=== PATIENT | male | born 1995 | race Caucasian/White ===

== ENCOUNTER → 2018-06-24 14:15 | Outpatient (CLI) | payer BC, SELFPAY ==
--- NOTE | 2018-06-24 14:24 | XR_ITS ---
XR hand LT min 3V HISTORY: Pain following injury ITS.REASON: LACERATION, 2ND FINGER ORDERING PHYSICIAN: Carmen Castillo PATIENT AGE: 23 years COMPARISON: None FINDINGS: No fracture or dislocation. No lytic or blastic change. There is normal mineralization.. The joint spaces are well-preserved. No significant degenerative/arthritic changes. No erosive changes evident.. IMPRESSION: Negative, no acute finding
== END ==
PROVIDERS: PCP Nurse Practitioner Family; Visit Provider Nurse Practitioner Family
DX: S61.213A Laceration without foreign body of left middle finger without damage to nail, initial encounter (principal)
CPT/HCPCS: 73130

== ENCOUNTER → 2019-05-07 15:25 | Outpatient (CLI) | payer BC, SELFPAY ==
[2019-05-07 16:19] LABS: Basophils % 0.7 % (0.1-2.0); Eosinophils # 0.1 K/mm3 (0.0-0.4); Eosinophils % 1.4 % (0.1-12.0); Hematocrit 42.6 % (42.0-52.0); Hemoglobin 13.7 g/dL (14.1-18.0); Lymphocytes # 1.9 K/mm3 (0.7-4.5); Lymphocytes % 33.1 % (10-50); Mean Corpuscular HGB Conc 32.1 g/dL (31.8-35.4); Mean Corpuscular Hemoglobin 28.4 pg (27.0-31.2); Mean Corpuscular Volume 88.4 fl (80-94); Mean Platelet Volume 7.4 fl (7.4-10.4); Monocytes # 0.6 K/mm3 (0.1-1.0); Monocytes % 9.7 % (1.7-9.3); Neutrophils # 3.1 K/mm3 (1.8-7.8); Neutrophils % 55.1 % (37.0-80.0); Platelet Count 219 K/mm3 (142-424); Red Blood Count 4.82 M/mm3 (4.60-6.20); Red Cell Distribution Width 13.9 % (11.5-17.5); White Blood Count 5.7 K/mm3 (4.8-10.8)
[2019-05-07 19:15] LABS: Alanine Aminotransferase 47 U/L (12-78); Albumin Level 4.3 gm/dL (3.4-5.0); Albumin/Globulin Ratio 1.7 (1.1-1.8); Alkaline Phosphatase 69 U/L (46-116); Anion Gap 9.1 mEq/L (5-15); Aspartate Amino Transferase 30 U/L (15-37); Bilirubin,Total 2.3 mg/dL (0.2-1.0); Blood Urea Nitrogen 11 mg/dL (7-18); Calcium 8.9 mg/dL (8.5-10.1); Carbon Dioxide 31 mmol/L (21.0-32.0); Chloride 104 mmol/L (98-107); Chol/HDL Ratio 2.7 (1-3.5); Cholesterol 154 mg/dL (140-200); Creatinine,Serum 0.72 mg/dL (0.70-1.30); Estimated Glomerular Filt Rate 133 ml/min (>60); GFR (African American) 161 ML/MIN (>60); Globulin 2.6 gm/dl (1.3-3.2); Glucose 91 mg/dL (74-106); HDL Cholesterol 57 mg/dL (27-67); LDL Cholesterol 88 mg/dL (0-130); Potassium 4.1 mmoL/L (3.5-5.1); Sodium 140 mmol/L (136-145); T4 (Thyroxine) 9.2 ug/dl (4.7-13.3); Thyroid Stimulating Hormone 3.24 uIU/ml (0.358-3.740); Total Protein,Serum 6.9 gm/dL (6.4-8.2); Triglycerides 44 mg/dL (30-200); VLDL Cholesterol 9 mg/dL (0-40)
[2019-05-09 17:04] LABS: H. pylori Breath Test Negative (Negative); Vitamin D 25 Hydroxy 34.8 ng/mL (30.0-100.0)
== END ==
PROVIDERS: Visit Provider Nurse Practitioner Family
DX: G47.9 Sleep disorder, unspecified (principal); E78.00 Pure hypercholesterolemia, unspecified; R10.9 Unspecified abdominal pain; R74.8 Abnormal levels of other serum enzymes
CPT/HCPCS: 36415; 80053; 80061; 82652; 83013; 84436; 84443; 85025

== ENCOUNTER → 2019-05-27 08:34 | Outpatient (CLI) | payer BC, SELFPAY ==
--- NOTE | 2019-05-27 08:38 | US_ITS ---
PROCEDURE: US LIVER CLINICAL INDICATION: elevated liver enzymes COMPARISON: No exams were available for comparison FINDINGS: Pancreas: Unremarkable/Not well seen Liver: Unremarkable. There is appropriate direction of blood flow within a non dilated portal vein. Right kidney: Unremarkable appearing. No hydronephrosis. Gallbladder: Post cholecystectomy. Common bile duct is normal at 2 mm. IMPRESSION: Status post cholecystectomy. Unremarkable hepatic ultrasound Dictated by: Ambrose Choudhary MD 05/27/2019 19:43 Electronically signed by Ambrose Choudhary MD in [place] 05/27/2019 19:43
== END ==
PROVIDERS: PCP Nurse Practitioner Family; Visit Provider Nurse Practitioner Family
DX: R74.8 Abnormal levels of other serum enzymes (principal)
CPT/HCPCS: 76705

== ENCOUNTER 2020-05-21 15:01 | Emergency (ER) | payer BC, SELFPAY ==
[2020-05-21 15:45] VITALS: BP 107/71; PULSE 73; RESP 17; TEMP 36.6; O2SAT 99; BMI 20.3
--- NOTE | 2020-05-21 15:54 | HMH.EDUTC ---
[facility] – [place], [place] Disposition Clinical Impression: Exposure to COVID-19 virus Disposition: Home, Self-Care Condition on Discharge: Good Instructions: Preventing the Spread of Coronavirus Discharge Instructions Additional Instructions: You have been tested for COVID19. Please isolate yourself as if you are positive until test results received. Referrals: Carmen Castillo APRN [Primary Care Provider] - Time of Disposition: 16:08 Medical Decision Making - Nathaniel Inquiry Pt receiving controlled substance: No Vital Signs: 05/21/20 15:45 Temperature 97.8 F Temperature Source Oral Pulse Rate [Right Brachial] 73 Respiratory Rate 17 Blood Pressure [Right Arm] 107/71 L Blood Pressure Mean [Right Arm] 83 Blood Pressure Source [Right Arm] Automatic Cuff Blood Pressure Position [Right Arm] Sitting 02 Sat by Pulse Oximetry 99 Oxygen Delivery Method Room Air - Lab Data Lab results reviewed: Yes: I reviewed the patient's lab results. Orders (Tests/Meds): ORDERS Category Date Time Status Covid-19 Nasal PCR ([facility]) Routine Lab 05/21/20 15:30 Received [facility] – [place], [place] HPI - General Stated complaint: Nausea, fever, chills Time Seen by Provider: 05/21/20 15:55 - History of Present Illness Provider Complaint: Nausea, fever, body aches, chills x 4 days. No vomiting or diarrhea. No loss of taste or smell. Throat is sore and hurts to swallow. Mild congestion. No known exposure to COVID19. Onset (ago): day(s) (4) Location: face Relieving factors: none Exacerbating factors: none Associated symptoms: fever/chills, headaches, nausea/vomiting Treatments prior to arrival: none - Related Data Previous Rx's Medication Instructions Recorded prednisone 20 mg tablet 20 mg PO BID #10 tab 02/11/20 naproxen 500 mg tablet 500 mg PO BID 7 Days #14 tab 02/20/20 Allergies Allergy/AdvReac Type Severity Reaction Status Date / Time NO KNOWN ALLERGIES Allergy Uncoded 02/11/20 13:41 [facility] History - Hepatitis A Screen Attestation statement:: This patient has been screened for Hepatitis A risk factors. I have reviewed the patient's past medical history: Yes Medical History: Reports:: Anxiety, Gall Bladder Disease Laterality Cases: Right: Arthroscopy Shoulder Other Surgeries: Yes: Cholecystectomy, Other Amputation: No Fractures: No Comment: [place] teeth removed, finger - Social History Smoking Status: Never smoker Alcohol Intake: never Alcohol Intake Frequency:: a few times a month Substance Use Type: denies use Occupational Status: employed - Psychiatric History Pschychiatric History:: Reports:: Anxiety Family Hx:: Heart Attack, Stroke, Hypertension, Cancer ROS Obtained: Yes All systems reviewed & no additional complaints - Constitutional Constitutional: Reports body ache, Reports chills, Reports fever(s) - ENT Ears, Nose, Mouth, and Throat: Reports sore throat, Reports throat swelling - Gastrointestinal Gastrointestingal: Reports: nausea Physical Exam - General General appearance: alert, in no apparent distress - Head Head exam: atraumatic, normocephalic, normal inspection - Eye Eye exam: Present: normal appearance, PERRL, EOMI - ENT ENT exam: Present: normal exam, normal oropharynx, mucous membranes moist, TM's normal bilaterally, normal external ear exam - Expanded ENT Exam Throat exam: Present: tonsillar erythema, tonsillomegaly, tonsillar exudate - Neck Neck exam: Present: normal inspection, full ROM, trachea midline. Absent: meningismus, lymphadenopathy - Chest Chest inspection: Present: normal inspection, symmetric chest wall rise. Absent: tenderness - Respiratory Respiratory exam: Present: normal lung sounds bilaterally. Absent: respiratory distress - Cardiovascular Cardiovascular exam: Present: regular rate, normal rhythm. Absent: JVD - Abdominal Exam Abdominal exam: Present: soft, normal bowel sounds. Absent: distention, tenderness, guarding - Extremities Exam Extremities ex
[2020-05-21 16:18] VITALS: BP 107/71; PULSE 73; RESP 17; TEMP 36.6; O2SAT 99
[2020-05-21 18:10] LABS: UTC Strep Screen (Rapid) Negative (Negative)
== END 2020-05-21 16:20 | disposition home or self-care (01) ==
PROVIDERS: Emergency Provider Physician Assistant; PCP Nurse Practitioner Family
DX: Z20.828 Contact with and (suspected) exposure to other viral communicable diseases (principal); R50.9 Fever, unspecified; R11.0 Nausea
CPT/HCPCS: 87880; 99202; U0003

== ENCOUNTER → 2021-08-29 11:22 | Outpatient (CLI) | payer OTHER, SELFPAY ==
[2021-08-30 06:54] LABS: Covid-19 Nasal PCR Sendout Lex NOT DETECTED
== END ==
PROVIDERS: PCP Nurse Practitioner Family; Visit Provider Nurse Practitioner
DX: Z20.822 Contact with and (suspected) exposure to COVID-19 (principal)
CPT/HCPCS: C9803; U0004; U0005

== ENCOUNTER → 2022-02-24 15:57 | Outpatient (CLI) | payer OTHER, SELFPAY ==
[2022-02-24 15:02] LABS: Adenovirus,PCR Not Detected (NotDetected); Bordetella Pertussis Not Detected (NotDetected); Chlamydophila Pneumoniae, PCR Not Detected (NotDetected); Coronavirus 229E Not Detected (NotDetected); Coronavirus NL63 Not Detected (NotDetected); Coronavirus OC43 Not Detected (NotDetected); Coronovirus HKU1,PCR Not Detected (NotDetected); Human Metapneumovirus Not Detected (NotDetected); Influenza A, PCR Not Detected (NotDetected); Influenza AH1, 2009 Not Detected (NotDetected); Influenza AH1, PCR Not Detected (NotDetected); Influenza AH3,PCR Not Detected (NotDetected); Influenza B, PCR Not Detected (NotDetected); Mycoplasma Pneumoniae, PCR Not Detected (NotDetected); Parainfluenza 1, PCR Not Detected (NotDetected); Parainfluenza 2, PCR Not Detected (NotDetected); Parainfluenza 3, PCR Not Detected (NotDetected); Parainfluenza 4, PCR Not Detected (NotDetected); Respiratory Syncytial Virus Not Detected (NotDetected); Rhinovirus/Enterovirus Not Detected (NotDetected)
[2022-02-24 16:43] LABS: Coronavirus 19, PCR Detected (NotDetected)
== END ==
PROVIDERS: PCP Nurse Practitioner Family; Visit Provider Nurse Practitioner Family
DX: U07.1 COVID-19 (principal); J02.9 Acute pharyngitis, unspecified; R50.9 Fever, unspecified; R05.9 Cough, unspecified
CPT/HCPCS: 87581; 87632; 87798; C9803; U0003; U0005

== ENCOUNTER → 2022-07-06 11:44 | Outpatient (CLI) | payer OTHER, SELFPAY ==
--- NOTE | 2022-07-06 12:27 | XR_ITS ---
FINAL REPORT CLINICAL HISTORY: CERVICALGIA neck pain at base of skull NKI FINDINGS: CERVICAL SPINE Three views were obtained. There is no acute fracture. There is no malalignment. The disc spaces are preserved. There is no soft tissue abnormality. IMPRESSION: No acute bony abnormality. Reviewed, Interpreted and Dictated by Homero Kelly III, MD Transcribed by Justina Aragon Authenticated and [facility]
== END ==
PROVIDERS: PCP Nurse Practitioner Family; Visit Provider Nurse Practitioner Family
DX: M54.2 Cervicalgia (principal)
CPT/HCPCS: 72040

== ENCOUNTER → 2022-07-14 06:57 | Outpatient (CLI) | payer OTHER, SELFPAY ==
--- NOTE | 2022-07-14 07:07 | CT_ITS ---
FINAL REPORT CLINICAL HISTORY: PAIN IN CERVICAL SPINE, CERVICALGIA FINDINGS: Axial CT images of the cervical spine were obtained without contrast. Sagittal and coronal reformatted images were also obtained. This study was performed with techniques to keep radiation doses as low as reasonably achievable (ALARA). Individualized dose reduction techniques using automated exposure control or adjustment of mA and/or kV according to the patient''s size were employed. There is no evidence of fracture or dislocation. The bony alignment is normal. The disc spaces are preserved. There is no evidence of canal stenosis. No paraspinous soft tissue abnormality is seen. Limited images of the upper thorax are unremarkable. IMPRESSION: No fracture or acute bony abnormality identified. No evidence of significant central canal stenosis or neural foraminal narrowing. Authenticated and [facility]
== END ==
PROVIDERS: PCP Nurse Practitioner Family; Visit Provider Nurse Practitioner Family
DX: M54.2 Cervicalgia (principal)
CPT/HCPCS: 72125

== ENCOUNTER 2025-06-23 07:08 | Outpatient (CLI) | payer BC, SELFPAY ==
--- OUTSIDE RECORDS SUMMARY | 2025-06-23 07:11 | XMS_ITS | Clinical Summary ---
[facility] Organization [facility] Address [address] [place] [address] Care Team Providers Care Reed Man Name Role Phone Sofi Young MD Primary Care Provider + Social History Tobacco Use Types Packs/Day Years Used Date Smoking Tobacco: Never Assessed Abuse Screen Answer Date Recorded Unsafe at Home or Work/School Not on file Feels Threatened by Someone? Not on file 06/2023 Does Anyone Keep You from Co ntacting Others or Doint Things Outside the Home? Not on file 05/10/2023 Physical Sign of Abuse Present Not on file 1 Housing Stability Answer Date Recorded Current Living Arrangements Not on file 04/29 Potentially Unsafe Housing Conditions Not on nubia e 05/10/2023 Family and Community Support Answer Rush e Recorded Help with Day-to-Day Activities Not on file 05/10/2023 Lonely or Isolated Not on file 05/10/2023 Employment Answer Date Recorded Do you want help finding or keeping work or a siomara b? Not on file 05/10/2023 Disabilities Answer Date Recorded Concentrating, Remembering, or Making Decisions Difficulty Not on file 05/10/2023 Doing Errands Independently Difficulty Not on fi le 05/10/2023 Education Answer Date Recorded Help with school or training? Not on file Preferred Language Not on file 05/10/2023 Sex and Gender Information Value Date Recorded Sex Assigned at Not on file Legal Sex Male 10:52 AM EST Gender Identity Not on file Sexual Orientation Not on file Plan of Treatment Health Maintenance Due Date Last Done Comments TDAP/TD VACCINES (1 - Tdap) 2013 ANNUAL PHYSICAL 07/24/2018 HEPATITIS C SCREENING 07/24/2018 PT PLAN OF CARE 07/24/2018 INFLUENZA VACCINE 02/27/2025 Pneumococcal Vaccine 0-49 Aged Out No longer eligible based on patient's age to complete this topic Insurance PPO Care Teams Reed Man Relationship Specialty Start Date End Date Sofi Young MD [address] [place] [address] PCP - General Internal Medicine 07/24/18
--- OUTSIDE RECORDS SUMMARY | 2025-06-23 07:11 | XMS_ITS | Data Portability ---
Author Organization [facility] Address [address] [place] [address] Assessment No assessment recorded. Plan of Treatment Reminders Order Date Submit Date Provider Last Modified By Organization Details Last Modified Time Details Appointments None recorded. Lab rapid strep group A, throat 2024 025 [facility], [address] [place] [address], [address], 5 16:53:53 rapid SARS CoV + SARS CoV 2 Ag, QL IA, respiratory specimen 2024 025 [facility], [address] [place] [address], [address], 5 16:53:53 rapid strep group A, throat 2024 025 [facility], [address] [place] [address], [address], 5 16:27:55 rapid strep group A, throat 2022 023 [facility], [address] [place] [address], [address], 3 15:28:59 vitamin D, 25-hydroxy, total, serum 2022 023 [facility], [address], Hugo F, [place], [address], 3 11:07:49 vitamin B12 + folate, serum or blood 2022 023 NEENA Esparza, [address], [place] [address], [place], [address], 3 11:07:49 TSH + free T4, serum 2022 023 NEENA Esparza, [address], Hugo F, [place], [address], 3 11:07:46 CMP, serum or plasma 2022 023 NEENA Esparza, [address], Hugo F, [place], [address], 3 11:07:47 CBC w/ auto diff 2022 023 NEENA Esparza, [address], Hugo F, [place], [address], 3 11:07:47 iron + total iron-bindin g capacity (TIBC), serum 2022 023 NEENA Esparza, [address], [place] F, [place], [address], 3 11:07:48 Referral None recorded. Procedures None recorded. Surgeries None recorded. Imaging electrocard iogram 2024 025 [facility], [address] [facility], [place], [address], 5 16:58:32 CT, cervical spine, w/o contrast 2021 022 [facility] (X-Ray), [address] [place] [address] [address], [place], [address], 2 07:46:30 Medication Orders amoxicillin 500 mg tablet 2024 025 [facility], [address], [address], 5 05:01:42 prednisone 20 mg tablet 2024 025 [facility], [address], [address], 5 05:02:08 amoxicillin 500 mg tablet 2024 025 [facility], [address], [address], 5 05:01:42 escitalopra m 10 mg tablet 2024 025 [facility], [address], [address], 5 15:57:20 amoxicillin 500 mg capsule 2022 023 [facility], [address], [address], 5 15:02:39 Lexapro 10 mg tablet 2021 022 [facility], [facility], [address], [address], 5 15:57:12 Xanax 0.25 mg tablet 2021 022 [facility], [facility], [address], [address], 3 14:57:46 Patient TargetsNo targets recorded. Patient Instructions Encounter Date Encounter Id Patient Instructions Last Modified By Organization Details Last Modified Time 06/30/2022 [id number] anxiety disorder : care instructions efryman Not available 06/30/2022 10:33:18 anxiety and alba c coping education efryman Not available 06/30/2022 10:33:18 learning about generalized anxiety disorder efryman Not available 06/30/2022 10:33:18 Reason for Referral None Reported. Results Created Date Observation Date Name Description Value Unit Range Abnormal Flag Note LastModifiedBy Organization Detail LastModifiedTime 07/06/20 23 07/07/2023 TSH+F REE T4 TSH 0.490 uIU/m L 0.450- 4.500 Not Available [facility] ([facility]) [address], [place], [address], 07/07/2023 11:07:46 07/06/20 23 07/07/2023 TSH+F REE T4 T4,free(dire ct) 1.04 NG/dL 0.82-1 .77 Not Available [facility] ([facility]) [address] [place], [address], 07/07/2023 11:07:46 07/06/20 23 07/07/2023 CBC WITH DIFFE RENTI AL/PL ATELE T WBC 11.7 x10e3 /uL 3.4-10 .8 above high normal Not Available [facility] ([facility]) [address] [place], [address], 07/07/2023 11:07:47 07/06/20 23 07/07/2023 CBC WITH DIFFE RENTI AL/PL ATELE T RBC 5.05 x10e6 /uL 4.14-5 .80 Not Available [facility] ([facility]) [address] [place], [address], 07/07/2023 11:07:47 07/06/20 23 07/07/2023 CBC WITH DIFFE RENTI AL/PL ATELE T hemoglobin 14.6 g/dL 13.0-1 7.7 Not Available [facility] ([facility]) [address] [place], [address], 07/07/2023 11:07:47 07/06/20 23 07/07/2023 CBC WITH DIFFE RENTI AL/PL ATELE T hematocrit 43.1 % 37.5-5 1.0 Not Available [facility] ([facility]) [address], [place], [address], 07/07/2023 11:07:47 07/06/20 23 07/07/2023 CBC WITH DIFFE RENTI AL/PL ATELE T MCV 85 fL 79-97 Not Available [facility] ([facility]) [address], [place], [address], 07/07/2023 11:07:47 07/06/20 23 07/07/2023 CBC WITH DIFFE RENTI AL/PL ATELE T MCH 28.9 pg 26.6-3 3.0 Not Available [facility] ([facility]) [address], [place], [address], 07/07/2023 11:07:47 07/06/20 23 07/07/2023 CBC WITH DIFFE RENTI AL/PL ATELE T MCHC 33.9 g/dL 31.5-3 5.7 Not Available [facility] ([facility]) [address], [place], [address], 07/07/2023 11:07:47 07/06/20 23 07/07/2023 CBC WITH DIFFE RENTI AL/PL ATELE T RDW 12.8 % 11.6-1 5.4 Not Available [facility] ([facility]) [address], [place], [address], 07/07/2023 11:07:47 07/06/20 23 07/07/2023 CBC WITH DIFFE RENTI AL/PL ATELE T platelets 215 x10e3 /uL 150-45 0 Not Available [facility] ([facility]) [address], [place], [address], 07/07/2023 11:07:47 07/06/20 23 07/07/2023 CBC WITH DIFFE RENTI AL/PL ATELE T neutrophils 81 % not estab. Not Available [facility] ([facility]) [address], [place], [address], 07/07/2023 11:07:47 07/06/20 23 07/07/2023 CBC WITH DIFFE RENTI AL/PL ATELE T lymphs 9 % not estab. Not Available [facility] ([facility]) [address], [place], [address], 07/07/2023 11:07:47 07/06/20 23 07/07/2023 CBC WITH DIFFE RENTI AL/PL ATELE T monocytes 9 % not estab. Not Available [facility] ([facility]) [address], [place], [address], 07/07/2023 11:07:47 07/06/20 23 07/07/2023 CBC WITH DIFFE RENTI AL/PL ATELE T eos 1 % not estab. Not Available [facility] ([facility]) [address], [place], [address], 07/07/2023 11:07:47 07/06/20 23 07/07/2023 CBC WITH DIFFE RENTI AL/PL ATELE T basos 0 % not estab. Not Available [facility] ([facility]) [address], [place], [address], 07/07/2023 11:07:47 07/06/20 23 07/07/2023 CBC WITH DIFFE RENTI AL/PL ATELE T immature cells [employer] Not Available [facility] ([facility]) [address], [place], [address], 07/07/2023 11:07:47 07/06/20 23 07/07/2023 CBC WITH DIFFE RENTI AL/PL ATELE T neutrophils (absolute) 9.4 x10e3 /uL 1.4-7. 0 above high normal Not Available [facility] ([facility]) [address], [place], [address], 07/07/2023 11:07:47 07/06/20 23 07/07/2023 CBC WITH DIFFE RENTI AL/PL ATELE T lymphs (absolute) 1.1 x10e3 /uL 0.7-3. 1 Not Available [facility] ([facility]) [address], [place], [address], 07/07/2023 11:07:47 07/06/20 23 07/07/2023 CBC WITH DIFFE RENTI AL/PL ATELE T monocytes(ab solute) 1.0 x10e3 /uL 0.1-0. 9 above high normal Not Available [facility] ([facility]) [address], [place], [address], 07/07/2023 11:07:47 07/06/20 23 07/07/2023 CBC WITH DIFFE RENTI AL/PL ATELE T eos (absolute) 0.1 x10e3 /uL 0.0-0. 4 Not Available [facility] ([facility]) [address], [place], [address], 07/07/2023 11:07:47 07/06/20 23 07/07/2023 CBC WITH DIFFE RENTI AL/PL ATELE T baso (absolute) 0.0 x10e3 /uL 0.0-0. 2 Not Available [facility] ([facility]) [address], [place], [address], 07/07/2023 11:07:47 07/06/20 23 07/07/2023 CBC WITH DIFFE RENTI AL/PL ATELE T immature granulocytes 0 % not estab. Not Available [facility] ([facility]) [address], [place], [address], 07/07/2023 11:07:47 07/06/20 23 07/07/2023 CBC WITH DIFFE RENTI AL/PL ATELE T immature grans (abs) 0.0 x10e3 /uL 0.0-0. 1 Not Available [facility] ([facility]) [address], [place], [address], 07/07/2023 11:07:47 07/06/20 23 07/07/2023 CBC WITH DIFFE RENTI AL/PL ATELE T NRBC [employer] Not Available [facility] ([facility]) [address], [place], [address], 07/07/2023 11:07:47 07/06/20 23 07/07/2023 CBC WITH DIFFE RENTI AL/PL ATELE T hematology comments: [employer] Not Available [facility] ([facility]) [address], [place], [address], 07/07/2023 11:07:47 07/06/20 23 07/07/2023 COMP. METAB OLIC PANEL (14) glucose 105 mg/dL 70-99 above high normal Not Available [facility] ([facility]) [address], [place], [address], 07/07/2023 11:07:47 07/06/20 23 07/07/2023 COMP. METAB OLIC PANEL (14) BUN 13 mg/dL 6-20 Not Available [facility] ([facility]) [address], [place], [address], 07/07/2023 11:07:47 07/06/20 23 07/07/2023 COMP. METAB OLIC PANEL (14) creatinine 0.87 mg/dL 0.76-1 .27 Not Available [facility] ([facility]) [address], [place], [address], 07/07/2023 11:07:47 07/06/20 23 07/07/2023 COMP. METAB OLIC PANEL (14) eGFR 120 mL/mi n/1.7 3 >59 Not Available [facility] ([facility]) [address], [place], [address], 07/07/2023 11:07:47 07/06/20 23 07/07/2023 COMP. METAB OLIC PANEL (14) BUN/creatini ne ratio 15 9-20 Not Available [facility] ([facility]) [address] [place], [address], 07/07/2023 11:07:47 07/06/20 23 07/07/2023 COMP. METAB OLIC PANEL (14) sodium 138 mmol/ L 134-14 4 Not Available [facility] ([facility]) [address] [place], [address], 07/07/2023 11:07:47 07/06/20 23 07/07/2023 COMP. METAB OLIC PANEL (14) potassium 4.3 mmol/ L 3.5-5. 2 Not Available [facility] ([facility]) [address] [place], [address], 07/07/2023 11:07:47 07/06/20 23 07/07/2023 COMP. METAB OLIC PANEL (14) chloride 97 mmol/ L 96-106 Not Available [facility] ([facility]) [address] [place], [address], 07/07/2023 11:07:47 07/06/20 23 07/07/2023 COMP. METAB OLIC PANEL (14) carbon dioxide, total 27 mmol/ L 20-29 Not Available [facility] ([facility]) [address] [place], [address], 07/07/2023 11:07:47 07/06/20 23 07/07/2023 COMP. METAB OLIC PANEL (14) calcium 9.6 mg/dL 8.7-10 .2 Not Available [facility] ([facility]) [address] [place], [address], 07/07/2023 11:07:47 07/06/20 23 07/07/2023 COMP. METAB OLIC PANEL (14) protein, total 7.1 g/dL 6.0-8. 5 Not Available [facility] ([facility]) [address] [place], [address], 07/07/2023 11:07:47 07/06/20 23 07/07/2023 COMP. METAB OLIC PANEL (14) albumin 5.0 g/dL 4.3-5. 2 Not Available [facility] ([facility]) [address] [place], [address], 07/07/2023 11:07:47 07/06/20 23 07/07/2023 COMP. METAB OLIC PANEL (14) globulin, total 2.1 g/dL 1.5-4. 5 Not Available [facility] ([facility]) [address] [place], [address], 07/07/2023 11:07:47 07/06/20 23 07/07/2023 COMP. METAB OLIC PANEL (14) A/G ratio 2.4 1.2-2. 2 above high normal Not Available [facility] ([facility]) [address] [place], [address], 07/07/2023 11:07:47 07/06/20 23 07/07/2023 COMP. METAB OLIC PANEL (14) bilirubin, total 2.0 mg/dL 0.0-1. 2 above high normal Not Available [facility] ([facility]) [address] [place], [address], 07/07/2023 11:07:47 07/06/20 23 07/07/2023 COMP. METAB OLIC PANEL (14) alkaline phosphatase 97 IU/L 44-121 Not Available [facility]) [address] [place], [address], 07/07/2023 11:07:47 07/06/20 23 07/07/2023 COMP. METAB OLIC PANEL (14) AST (SGOT) 24 IU/L 0-40 Not Available [facility] ([facility]) [address] [place], [address], 07/07/2023 11:07:47 07/06/20 23 07/07/2023 COMP. METAB OLIC PANEL (14) ALT (SGPT) 31 IU/L 0-44 Not Available [facility] ([facility]) [address] [place], [address], 07/07/2023 11:07:47 07/06/20 23 07/07/2023 IRON AND TIBC iron bind.cap.(TI BC) 322 ug/dL 250-45 0 Not Available [facility] ([facility]) [address] [place], [address], 07/07/2023 11:07:48 07/06/20 23 07/07/2023 IRON AND TIBC UIBC 286 ug/dL 111-34 3 Not Available [facility] ([facility]) [address] [place], [address], 07/07/2023 11:07:48 07/06/20 23 07/07/2023 IRON AND TIBC iron 36 ug/dL 38-169 below low normal Not Available [facility] ([facility]) [address] [place], [address], 07/07/2023 11:07:48 07/06/20 23 07/07/2023 IRON AND TIBC iron saturation 11 % 15-55 below low normal Not Available [facility] ([facility]) [address] [place], [address], 07/07/2023 11:07:48 07/06/20 23 07/07/2023 VITAM IN B12 AND FOLAT E vitamin B12 565 pg/mL 232-12 45 Not Available [facility] ([facility]) [address] [place], [address], 07/07/2023 11:07:48 07/06/20 23 07/07/2023 VITAM IN B12 AND FOLAT E folate (folic acid), serum 6.7 NG/mL >3.0 A serum folat e bárbara ntrat ion of less than 3.1 ng/mL is consi dered to repre sent clini judson defic iency . Not Available [facility] ([facility]) [address], [place], [address], 07/07/2023 11:07:48 07/06/20 23 07/07/2023 VITAM IN D, 25-HY DROXY vitamin D, 25-hydroxy 32.2 NG/mL 30.0-1 00.0 Vitam in D defic iency has been defin ed by the Insti tute of Medic ine and an Endoc rine Socie ty pract ice guide line as a level of serum 25-OH vitam in D less than 20 ng/mL (1,2) . The Endoc rine Socie ty went on to furth er defin e vitam in D insuf ficie ncy as a level betwe en 21 and 29 ng/mL (2). 1. IOM (Inst itute of Medic ine). 2010. Dieta ry refer ence intak es for calci um and D. Massimo gonzales [place]: The [facility] Press . 2. [place] serna [place], Bunny ey [place], Jordin off-F errar i PINO, et al. Evalu ation , treat ment, and preve ntion of vitam in D defic iency : an Endoc rine Socie ty clini judson pract ice guide line. JCEM. 2010; 96(7) :1911 -30. Not Available [facility] ([facility]) [address], [place], [address], 07/07/2023 11:07:49 07/06/20 23 07/06/2023 rapid strep group A, throa t Strep negati ve Not Available [address], [address], 07/06/2023 14:56:12 07/06/20 23 07/06/2023 rapid strep group A, throa t Culture No Not Available [address], [address], 07/06/2023 14:56:12 08/29/19 25 08/29/2024 rapid strep group A, throa t Strep negati ve Not Available [address], [address], 08/29/2024 15:11:50 08/29/19 25 08/29/2024 rapid strep group A, throa t Culture No Not Available [address], [address], 08/29/2024 15:11:50 04/06/20 25 04/06/2025 rapid SARS CoV + SARS CoV 2 Ag, QL IA, respi rator y speci men SARS CoV antigen Negati ve Not Available [address], [address], 04/06/2025 16:21:20 04/06/20 25 04/06/2025 rapid strep group A, throa t Strep negati ve Not Available [address], [address], 04/06/2025 16:21:06 04/06/20 25 04/06/2025 rapid strep group A, throa t Culture No Not Available [address], [address], 04/06/2025 16:21:06 07/06/20 22 07/06/2022 XR, cervi judson spine , 2 or 3 view No observ ation record ed. [email or web address] [address], [place], [address], 07/06/2022 16:08:29 07/14/20 22 07/14/2022 CT, cervi judson spine , w/o contr ast No observ ation record ed. [facility] [address], [place], [address], 07/14/2022 14:10:47 04/06/20 25 04/06/2025 elect rocar diogr am No observ ation record ed. [address], [address], 04/06/2025 16:58:37 04/17/20 25 04/06/2025 elect rocar diogr am No observ ation record ed. [email or web address] [address], [address], 04/21/2025 14:14:03 04/21/20 25 04/17/2025 elect rocar diogr am No observ ation record ed. [address], [address], 04/21/2025 14:40:23 Result Notes None recorded. Problems Name Problem SNOMED Code Status Onset Date Resolution Date Notes Provider Name and Address Organization Details Recorded Time Anxiety [id number] Active 025 Carmen Castillo, G[place]SH[place] [address], [place], [address] , [place] - [facility] 08/29/2024 15:40:58 Notes:Some problems listed i n Documents: #[id number], #[id number], #[id number] could not be added to this patient's chart. Please review these documents and add these problems to the patient's chart manually as needed. Problem Notes None recorded. Procedures Surgical History Date Name Laterality Status Provider Name and Address Organization Details Recorded Time 016 Colonoscopy completed Jaja PRASAD - [facility] 06/30/2022 10:05:15 015 Gastrointestinal Surgery completed Jaja PRASAD - [facility] 06/30/2022 10:05:15 013 Orthopedic Surgery completed Jaja Bryant [place] - [facility] 06/30/2022 10:05:15 012 dental [facility] [place] [facility]30/[facility]22 10:05:15 Imaging Results None recorded. Procedure Notes None recorded. Medical Equipment None Reported. Allergies No known drug allergies Medications Name Sig Start Date Stop Date Status Note LastModified by Organization Details LastModified Time amoxicill in 500 mg capsule TAKE 1 CAPSULE BY MOUTH TWICE DAILY FOR SORE THROAT FOR 10 DAYS 08/29 completed Not Available Not Available Not Available prednison e 20 mg tablet Take 1 tablet twice a day by oral route for 5 days. 04/18 completed Not Available Not Available Not Available omeprazol e 40 mg capsule,d elayed release take 1 capsule (40 mg) by oral route once daily before a meal for 30 days 10/28 completed omeprazo le oral capsule, delayed release( DR/EC) 40 mg;Recor ded Status: Recorded on: 10/29/19 14 9:36AM;D iscontin ued Status: Disconti nued on: 10/29/19 14 10:06AM; User: [email or web address] Morales on: 04/26/20 14 Not Available Not Available Not Available amoxicill in 500 mg tablet Take 1 tablet twice a day by oral route for 10 days. 04/23 completed Not Available Not Available Not Available alprazola m 0.25 mg tablet Take 1 tablet twice a day by oral route as needed for 3 days. 07/06 completed Not Available Not Available Not Available brompheni ramine-ps eudoephed rine-DM 2 mg-30 mg-10 mg/5 mL oral syrup TAKE 10 ML BY MOUTH EVERY 8 HOURS NEEDED 08/29 completed Not Available Not Available Not Available hydroxyzi ne pamoate 25 mg capsule TAKE 1 CAPSULE BY MOUTH THREE TIMES DAILY NEEDED FOR ITCHING 06/30 completed Not Available Not Available Not Available escitalop ilya 10 mg tablet Take 1 tablet by mouth once daily for 30 days 04/06 completed Not Available Not Available Not Available Vitals Date Recorded Body mass index (BMI) Body weight Body temperature Heart rate Oxygen saturation Respiratory rate Systolic And Diastolic Provider Name and Address Organization Details Last Updated DateTime 5 25 kg/m2 55127.7 g 97.9 [degF] 90 /min 99 % 18 /min 130/84 mm[Hg] Jaja Bryant [place] - [facility] 5 16:11:21 Date Recorded Body height Pain severity - 0-10 verbal numeric rating [Score] - Reported Provider Name and Address Organization Details Last Updated DateTime 08/29/2024 182.88 cm 0 Luciana Martinezs [place] - [facility] 08/29/2024 15:02:29 Date Recorded Body height Provider Name an d Address Organization Details Last Updated DateTime 09/12/2024 182.88 cm Jaja Bryant [place] - [facility] 0 09/12/2024 15:10:41 Date Recorded Body height Body mass index (BMI) Body weight Oxygen saturation Respiratory rate Pain severity - 0-10 verbal numeric rating [Score] - Reported Heart rate Systolic And Diastolic Provider Name and Address Organization Details Last Updated DateTime 5 182.88 cm 24 kg/m2 02202.8 5 g 98 % 20 /min 0 97 /min 140/82 mm[Hg] Jaja Bryant [place] - [facility] 5 15:59:40 Date Recorded Body weight Body temperature Heart rate Oxygen saturation Respiratory rate Pain severity - 0-10 verbal numeric rating [Score] - Reported Systolic And Diastolic Provider Name and Address Organization Details Last Updated DateTime 2 61612.7 8 g 97.6 [degF] 74 /min 99 % 18 /min 4 120/68 mm[Hg] Jaja Bryant [place] - [facility] 2 10:04:29 Date Recorded Body height Body mass index (BMI) Body weight Body temperature Heart rate Oxygen saturation Respiratory rate Pain severity - 0-10 verbal numeric rating [Score] - Reported Systolic And Diastolic Provider Name and Address Organization Details Last Updated DateTime 3 182.88 cm 23.8 kg/m2 36191.0 6 g 97.2 [degF] 87 /min 98 % 18 /min 7 128/72 mm[Hg] Jaja Annette [place] - [facility] 3 14:57:15 Social History Question Answer Notes LastModified by Organizat ion Details LastModified Time Tobacco Smoking Status Never Smoker Jaja Annette null, [place] - [facility] 06/30/2022 10:05:10 Do You Have An Advance Directive? No Information not available 06/30/2022 Are You Blind Or Do You Have Difficulty Seeing? No Information not available 08/29/2024 Is Blood Transfusion Acceptable In An Emergency? Yes Information not available 06/30/2022 What Is Your Level Of Caffeine Consumption? Moderate Information not available 06/30/2022 How Much Tobacco Do You Chew? None Information not available 06/30/2022 Are You Deaf Or Do You Have Serious Difficulty Hearing? No Information not available 06/30/2022 What Type Of Diet Are You Following? REGULAR Information not available 08/29/2024 Which Illicit Or Recreational Drugs Have You Used? None Information not available 06/30/2022 What Is The Highest Grade Or Level Of School You Have Completed Or The Highest Degree You Have Received? [id number] Information not available 06/30/2022 Have There Been Any Changes To Your Family Or Social Situation? No Information no t available 08/29/2024 What Is The Fluoride Status Of Your Home? Unknown Information not available 08/29/2024 How Many Years Have You Used Illicit Or Recreational Drugs? 0 Information not available 06/30/2022 Do You Have A Medical Power Of Civil Engineer Helper? No Information not available 08/29/2024 What Was The Date Of Your Most Recent Tobacco Screening? 08/29/2024 Information not available 08/29/2024 Do You Use Protection During Sex? No Information not available 06/30/2022 Do You Use Protection Against STDs? No Information not available 06/30/2022 What Is Your Relationship Status? Information not available 06/30/2022 Do You Use Your Seat Belt Or Car Seat Routinely? Yes Information not available 06/30/2022 Are You Sexually Active? Yes Information not available 06/30/2022 Do You Have Smoke And Carbon Monoxide Detectors In Your Home? Yes Information not available 06/30/2022 Are You Passively Exposed To Smoke? No Information no t available 06/30/2022 Do You Use Sunscreen Routinely? No Information not available 06/30/2022 Has Tobacco Cessation Counseling Been Provided? No Information not available 08/29/2024 Do You Have Difficulty Walking Or Climbing Stairs? No Information not available 08/29/2024 Sex: Male Functional Status Question Answer Note LastModified by Organizat ion Details LastModified Time Do you or have you ever used smokeless tobacco? Never used smokeless tobacco Information not available 06/30/2022 Are you currently employed? Yes Information not available 06/30/2022 Do you have transportation difficulties? No Information not available 08/29/2024 Are you able to care for yourself independently? Yes Information not available 06/30/2022 Do you have difficulty dressing, bathing, grooming, or toileting? No Information not available 08/29/2024 Do you or have you ever used e-cigarettes or vape? Never used electronic cigarettes Information not available 06/30/2022 What is your exercise level? Moderate Information not available 06/30/2022 Do you use any illicit or recreational drugs? No Information not available 06/30/2022 Do you or have you ever used any other forms of tobacco or nicotine? No Information not available 08/29/2024 What is your level of alcohol consumption? None Information not available 06/30/2022 Are you able to walk independently without assistance or assistive devices? YESWOREST Information not available 08/29/2024 Do you have difficulty doing errands alone? 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 [id number] Information not available 06/30/2022 Do you have difficulty concentrating, remembering or making decisions? No Information no t available 08/29/2024 Family History Relationship Description Onset Age of this Age Resolved Age Notes LastModified by Organization Details LastModified Time Mother Arthritis cbuckler Not availabl e 06/30/2022 10:04:56 Father Arthritis cbuckler Not availabl e 06/30/2022 10:04:56 Medical History Condition Response Anxiety Disorder Y Headaches Y Irritable Bowel Syndrome Y Immunizations Vaccine Type Date Status Note Provider Nam e and Address Organization Details Recorded Time Tdap 5 completed Jaja Bryant null, [place] - [facility] 09/12/2024 15:40:17 COVID-19, mRNA, LNP-S, PF, 100 mcg/0.5mL dose or 50 mcg/0.25mL dose 1 completed Jaja Bryant null, [place] - [facility] 07/06/2023 14:57:36 COVID-19, mRNA, LNP-S, PF, 100 mcg/0.5mL dose or 50 mcg/0.25mL dose 1 completed Jaja [place] null, [place] - [facility] 07/06/2023 14:57:36 Tdap 6 completed Jaja [place] [facility] 07/06/2023 14:57:36 Influenza, split virus, trivalent, preservative 5 completed Jaja [place] - [facility] 07/06/2023 14:57:36 Influenza, split virus, trivalent, PF 7 completed Jaja [place] - [facility] 07/06/2023 14:57:36 Past Encounters Encounter ID Performer Location Encounter Start Date Encounter Closed Date Diagnosis/Indication Diagnosis SNOMED-CT Code Diagnosis ICD10 Code Diagnosis IMO Codes Diagnosis Note [id number] Carmen Castillo APRN [address] [address] 06/30/2022 09:50:34 06/30/2022 10:28:11 Generalized anxiety disorder 00384513 F41.1 Nathaniel report obtained, reviewed, and made part of patents medical record. After reviewing the history, physical exam and treatment options, prescribin g a controlled substance is considered medically appropriat e for treatment for anxiety and improvemen t of function. The risks of tolerance and drug dependence were specifical ly discussed with the patient. All questions were answered.P atient identified triggers for anxiety and impact of anxious thinking on functionin g. Discussed strategies to regulate symptoms and need for compliance with treatment. medication side effects discussed with pt in detail. for any issues return or go to er caroline.will give short trial of xanax until meds get in system Pain in ce rvical spine 574205476 M54.2 [id number] [place] [id number] 07/06/2023 14:49:49 07/06/2023 15:41:37 Streptococcal sore throat 68234157 J02.0 Fatigue 19210630 R53.83 [id number] [facility] [place] [id number] 1 08/29/2024 14:36:02 08/29/2024 15:38:08 Streptococcal sore throat 21111428 J02.0 contact precaution sif worsening or no improvemen t return or be seen in er Generalize d anxiety disorder 25092191 F41.1 [id number] [facility] [address] 1 09/12/2024 15:08:30 09/12/2024 15:16:50 Administration of tetanus vaccine 576738390 Z23 [id number] [facility] [id number] 1 04/06/2025 15:37:11 04/06/2025 16:35:39 Chest pain 05361806 R07.9 39859255 Streptococ judson sore throat 79390617 J02.0 6939730 contact precaution sif worsening or no improvemen t return or be seen in er Bronchitis 99919119 J40 04356 monitor temp. Tylenol or Motrin as needed for pain or fever. encourage fluids, water, Gatorade, power aide, Pedialyte if infant/tod dler/child warm salt water gargles warm fluids sore throat lozenges sleep elevated humidifier /vaporizer follow up immediatel y for new or worsening symptoms or no noticeable improvemen t over the next 48-72 hours Health Concerns Section Related Observation LastModified by Organization Detai ls LastModified Time None Recorded Concern Status LastModified by Organization Details LastModified Time None Recorded Advance Directives Directive N: Payers Insurance Date Sequence Insurance Name Policy Number Policy Leon Covered Member ID Leon Member ID Guarantor Name 07/06/2023 1 HU[employer]NA (POS) Kel Faith [id number] Kel Faith 06/03/2025 2 [place] [id number] Didier Faith [id number] Kel Faith 04/06/2025 1 UMR [id number] Kel Faith [id number] Kel Faith 08/29/2024 1 [place] [id number] Kel Faith [id number] Kel Faith 06/03/2025 1 [place] [id number] Kel Pierre Vianney [id number] Kel Faith Notes Date Note Type Note Provider Name and Address Organization Details Recorded Time 06/30/2022 text/html Anxiety/Depressi onRe ported by PatientHPIFor severity, patient reportsdenies suicidal ideations,able to maintain relationships, anddoes not interfere with activities of daily living. For context, patient reportsno major life stressors. For associated symptoms, patient reportsdenies homicidal ideations,no significant weight gain,no significant weight loss,no visual/auditory hallucinations,no delusions,no shortness of breath,mood good,no anxiety,no crying spells,no panic,no isolation,sleeping well,appetite good,energy good,no apathy, andmaintaining functionality. 27 yr old male complaining of neck pain and anxiety. pt states he is having some panic attacks when around crowds and meetings. pt states he will notice he will become anxious and start rubbing his hands together.pt states he has been having this pain in the back of his neck at the base of his skull for about 6 months and he has tried otc meds and chiropractor and nothing seems to improve pain. pt states the pain will move around his head and then he will have a headache,become dizzy and feel he is going to pass out. Carmen Castillo, [address], [place], [address], [facility] - [facility] 06/30/2022 10:34:44 07/06/2023 text/html 28 yr old male complains of fatigue for 1 month and now has a sore throat and low grade fever that started last night. Carmen Castillo, [address], [place], [address], [facility] - [facility] 07/06/2023 15:32:06 08/29/2024 text/html ROS as noted in the HPI 29 year old male who presents to the office today with concerns of white patches and sore throat for 2-3 days. pt states fever that comes and goesalso needs anxiety meds refilled Jaja vallecillo [facility] 08/29/2024 16:11:42 09/12/2024 text/html 29 yr old male presents for a tetanus injection. Jaja vallecillo [facility] 09/12/2024 15:40:24 04/06/2025 text/html ROS as noted in the HPI 30 yr old male presents for runny nose, headache, feeling dizzy and nauseated at times. This has been going on for over a week. He had one episode of chest pain and soa while playing basketball. Carmen RoyGULSHAN aguirre [address], [place], [address], [facility] - [facility] 04/06/2025 16:54:06
--- OUTSIDE RECORDS SUMMARY | 2025-06-23 07:11 | XMS_ITS | Clinical Summary ---
Author Organization [facility] Address [address] [place] [address] Care Team Providers Care Transcription Coordinator Name Role Phone Sofi Young MD Primary Care Provider +1- [phone] Immunizations Immunization Administration Dates Next Due PPD Skin Test (TB Skin Test) 07/12/2022 Family History Medical History Relation Name Comments Cardiac disorder Other 1 Diabetes Other 2 Hypertension Other 3 Relation Name Status Comments Other 1 Other 2 Other 3 Social History Tobacco Use Types Packs/Day Years Used Date Smoking Tobacco: Never Alcohol Use Standard Drinks/Week Comments No 0 (1 standard drink = 0.6 oz pur e alcohol) Sex and Gender Information Value Date Recorded Sex Assigned at Not on file Legal Sex Male 6:08 PM EDT Gender Identity Not on file Sexual Orientation Not on file Last Filed Vital Signs Vital Sign Reading Time Taken Comments Blood Pressure 118/68 07/12/2022 11:20 AM EST Pulse 76 07/12/2022 11:18 AM EST Temperature - - Respiratory Rate - - Oxygen Saturation - - Inhaled Oxygen Concentration - - Weight 62.6 kg (138 lb 0.1 oz) 06/20/2016 10:46 AM EST Height 182.9 cm (6') 06/20/2016 10:46 AM EST Body Mass Index 18.72 06/20/2016 10:46 AM EST Plan of Treatment Health Maintenance Due Date Last Done Comments [facility]-Depression Screening 1994 [facility]-HIV Screening 1994 [facility]-Hepatitis C Screening 1994 [facility]-Infant/Child/Adol SDOH Screenings 1994 [facility]-Varicella Vaccines (1 of 2 - 13+ 2-dose series) 2007 UK[facility]- SDOH Screenings 2012 [facility]-Adult SDOH Screenings 2012 [facility]-Hepatitis B Vaccines (1 of 3 - 19+ 3-dose series) 2013 [facility]-DTaP,Tdap,and Td Vaccines (2 - Td or Tdap) 02/07/2016 02/06/2006 HPV Vaccines (1 - 3-dose SCDM series) 2021 [id number] Vaccine (3 - 2024- season) 2025 12/09/2020, 11/11/2020 [facility]-Influenza Vaccine (#1) 03/30/202508/04, 05/30/2015 [facility]-Zoster Vaccines (1 of 2) 2044 [facility]-HIB Vaccines Aged Out No longer e ligible based on patient's age to complete this topic [facility]Y-Hepatitis A Vaccines Aged Out No longer eligible based on patient's age to complete this topic [facility]Y-IPV Vaccines Aged Out No longer e ligible based on patient's age to complete this topic UKY-Pneumococcal Vaccine: Pediatrics (0 to 5 Years) and At-Risk Patients (6 to 49 Years) Aged Out No longer eligible b ased on patient's age to complete this topic [facility]Y-Rotavirus Vaccines Aged Out No lo nger eligible based on patient's age to complete this topic Insurance HUMANA Care Teams Transcription Coordinator Relationship Specialty Start Date End Date Sofi Young MD [address] [place] [id number] PCP - General 12/10/20
--- OUTSIDE RECORDS SUMMARY | 2025-06-23 07:11 | XMS_ITS | Continuity of Care Document ---
Author Organization [facility] Address [address] [place] [address] Assessment No assessment recorded. Plan of Treatment Reminders Order Date Submit Date Provider Last Modified By Organization Details Last Modified Time Details Appointments None recorded. Lab rapid strep group A, throat 2024 025 [facility], [address] [place] [address], [id number], 5 16:53:53 rapid SARS CoV + SARS CoV 2 Ag, QL IA, respiratory specimen 2024 025 [facility], [address] [place] [address], [id number], 5 16:53:53 Referral None recorded. Procedures None recorded. Surgeries None recorded. Imaging electrocard iogram 2024 025 [facility], [address] [place] [address], [id number], 5 16:58:32 Medication Orders amoxicillin 500 mg tablet 2024 025 [facility] [address], [address], [address], 5 05:01:42 prednisone 20 mg tablet 2024 025 [facility], [address], [address], 05:02:08 Patient TargetsNo targets recorded. Patient InstructionsNo instructions recorded. Reason for Referral None Reported. Results Created Date Observation Date Name Description Value Unit Range Abnormal Flag Note LastModifiedBy Organization Detail LastModifiedTime 04/06/2004/06/2025 rapid SARS CoV + SARS CoV 2 Ag, QL IA, respi rator y speci men SARS CoV antigen Negati ve Not Available [address], [address], 04/06/2025 16:21:20 04/06/20 25 04/06/2025 rapid strep group A, throa t Strep negati ve Not Available [address], [address], 04/06/2025 16:21:06 04/06/2004/06/2025 rapid strep group A, throa t Culture No Not Available [address], [address], 04/06/2025 16:21:06 04/06/20 25 04/06/2025 elect rocar diogr am No observ ation record ed. [address], [address], 04/06/2025 16:58:37 04/17/2004/06/2025 elect rocar diogr am No observ ation record ed. [email or web address] [address], [address], 04/21/2025 14:14:03 04/21/2004/17/2025 elect rocar diogr am No observ ation record ed. [address], [address], 04/21/2025 14:40:23 Result Notes None recorded. Problems Name Problem SNOMED Code Status Onset Date Resolution Date Notes Provider Name and Address Organization Details Recorded Time Anxiety [id number] Active 025 Carmen Castillo, INSIGHT LEADER [address], [place], [address] , [place] - [facility] 08/29/2024 15:40:58 Notes:Some problems listed i n Documents: #[id number], #[id number], #[id number] could not be added to this patient's chart. Please review these documents and add these problems to the patient's chart manually as needed. Problem Notes None recorded. Procedures Surgical History Date Name Laterality Status Provider Name and Address Organization Details Recorded Time 016 Colonoscopy completed [facility] - [facility] 06/30/2022 10:05:15 015 Gastrointestinal Surgery completed [facility] - [facility] 06/30/2022 10:05:15 013 Orthopedic Surgery completed [facility] - [facility] 06/30/2022 10:05:15 012 dental surgery completed [facility] - [facility] 06/30/2022 10:05:15 Imaging Results None recorded. Procedure [...] Disconti nued on: 10/29/19 14 10:06AM; User: [email or web address] b;Est. Completi on: 04/26/20 14 Not Available Not Available [...] Available Not Available Vitals Date Recorded Body height Body mass index (BMI) Body weight Oxygen saturation Respiratory rate Pain severity - 0-10 verbal numeric rating [Score] - Reported Heart rate Systolic And Diastolic Provider Name and Address Organization Details Last Updated DateTime 5 182.88 cm 24 kg/m2 44687.8 5 g 98 % 20 /min 0 97 /min 140/82 mm[Hg] Jaja Bryant [place] - [facility] 15:59:40 Social History Question Answer Notes LastModified by Organizat ion Details LastModified Time Tobacco Smoking Status Never Smoker Jaja Bryant null, [place] - [facility] 06/30/2022 10:05:10 Do [...] Or The Highest Degree You Have Received? [id number] Information not available 06/30/2022 Have There Been Any Changes To Your Family Or Social Situation? No Information no t available 08/29/2024 What Is The Fluoride Status Of Your Home? Unknown Information not available 08/29/2024 How Many Years Have You Used Illicit Or Recreational Drugs? 0 Information not available 06/30/2022 Do You Have A Medical Power Of Depilatory Painter? 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 [id number] Information not available 06/30/2022 Do you have [...] Immunizations Vaccine Type Date Status Note Provider Leonel winston and Address Organization Details Recorded Time Tdap 5 completed SHANICE Mack - [facility] 09/12/2024 15:40:17 COVID-19, mRNA, LNP-S, PF, 100 mcg/0.5mL dose or 50 mcg/0.25mL dose 1 completed SHANICE Mack - [facility] 07/06/2023 14:57:36 COVID-19, mRNA, LNP-S, PF, 100 mcg/0.5mL dose or 50 mcg/0.25mL dose 1 completed Jaja Annette [place], [place] - [facility] 07/06/2023 14:57:36 Tdap 6 completed Jaja Annette null, [place] - [facility] 07/06/2023 14:57:36 Influenza, split virus, trivalent, preservative 5 completed Jaja Annette null[place] - [facility] 07/06/2023 14:57:36 Influenza, split virus, trivalent, PF 7 completed Jaja Bryant [place], [place] - [facility] 07/06/2023 14:57:36 Past Encounters Encounter ID Performer Location Encounter Start Date Encounter Closed Date Diagnosis/Indication Diagnosis SNOMED-CT Code Diagnosis ICD10 Code Diagnosis IMO Codes Diagnosis Note [id number] Carmen Castillo APRN [address] [address] 04/06/2025 15:37:11 04/06/2025 16:35:39 Chest pain 94368821 R07.9 92565579 Streptococ judson sore throat 19496335 J02.0 2519560 contact precaution sif worsening or no improvemen t return or be seen in er Bronchitis 49644922 J40 71919 monitor temp. Tylenol or Motrin as needed for pain or fever. encourage fluids, water, Gatorade, power aide, Pedialyte if /tod dler/child warm salt water gargles warm fluids sore throat lozenges sleep elevated humidifier /vaporizer follow up immediatel y for new or worsening symptoms or no noticeable improvemen t over the next 48-72 hours Health Concerns Section Related Observation LastModified by Organization Detai ls LastModified Time None Recorded Concern Status LastModified by Organization Details LastModified Time None Recorded Payers Encounter Date Sequence Insurance Name Policy Number Policy Leon Covered Member ID Leon Member ID Guarantor Name 04/06/2025 2 [place] [id number] Didier Faith [id number] Kel Faith 04/06/2025 1 [place] [id number] Kel Faith [id number] Kel Faith Notes Date Note Type Note Provider Name and Address Organization Details Recorded Time 04/06/2025 text/html ROS as noted in the HPI 30 yr old male presents for runny nose, headache, feeling dizzy and nauseated at times. This has been going on for over a week. He had one episode of chest pain and soa while playing basketball. Carmen Castillo, INSIGHT LEADER [address], [place], [address], [place] - [facility] 04/06/2025 16:54:06
--- NOTE | 2025-06-23 07:12 | CT_ITS ---
FINAL REPORT TECHNIQUE: Thin section axial images were obtained from skull base to vertex without contrast. Coronal and sagittal reconstruction images were obtained from the axial data. Exam was performed using dose reduction techniques such as automated exposure control, adjustment of the mA and kV according to patient size, and use of iterative reconstruction technique. CLINICAL HISTORY: HEADACHE COMPARISON: None FINDINGS: There is no mass effect or midline shift. There is no hydrocephalus. There is no intracranial hemorrhage. The posterior fossa is without acute abnormality. The basilar cisterns are preserved. There is a large retention cyst or polyp in the right maxillary sinus. No acute osseous abnormality is identified. IMPRESSION: No acute intracranial abnormality. Reviewed, Interpreted and Dictated by Mira Cervantes MD Transcribed by Carolyn Gabriel Authenticated and [facility]
--- NOTE | 2025-06-23 07:12 | CT_ITS ---
FINAL REPORT TECHNIQUE: Thin section axial CT images with coronal and sagittal reformats were performed through the neck. This study was performed with techniques to keep radiation doses as low as reasonably achievable (ALARA). Individualized dose reduction techniques using automated exposure control or adjustment of mA and/or kV according to the patient's size were employed. CLINICAL HISTORY: HEADACHE, neck pain COMPARISON: None FINDINGS: The nasopharynx, oropharynx, and epiglottis are unremarkable in appearance. No adenopathy or mass lesion is present . Salivary glands are normal. Larynx is unremarkable. There are mildly prominent bilateral lymph nodes. There is a lower right cervical lymph node, best seen on coronal image #34, that measures 24 mm, and is likely reactive given the patient's chronologic age. No fluid collections are identified. There is a retained cyst or polyp in the maxillary sinus on the right side. No acute ossific processes identified. Thyroid gland is unremarkable. IMPRESSION: Lower right cervical lymph node, best seen on coronal image #34, measuring 24 mm. Given the patient's chronologic age this is likely reactive. Reviewed, Interpreted and Dictated by Mira Cervantes MD Transcribed by Carolyn Gabriel Authenticated and [facility]
== END 2025-06-23 23:59 | disposition home or self-care (01) ==
LOC: RAD 07:09
PROVIDERS: PCP Nurse Practitioner Family
DX: R59.0 Localized enlarged lymph nodes (principal); R51.9 Headache, unspecified
CPT/HCPCS: 70450; 70490

== ENCOUNTER 2025-07-21 09:06 | Outpatient (CLI) | payer BC, SELFPAY ==
--- OUTSIDE RECORDS SUMMARY | 2025-07-21 09:09 | XMS_ITS | Clinical Summary ---
Author Organization [facility] Address [address] [place] [address] Care Team Providers Care Idea Man Name Role Phone Sofi Young MD Primary Care Provider +1- [phone] Immunizations Immunization Administration Dates Next Due PPD [...] (2 - Td or Tdap) 02/07/2016 02/06/2006 [id number] Vaccine (3 - 2024- season) 2025 12/09/2020, 11/11/2020 [facility]-Influenza Vaccine (#1) 03/30/202508/04, 05/30/2015 [facility]-Zoster Vaccines (1 of 2) 2044 HPV Vaccines (No Doses Required) Completed [facility]-HIB Vaccines Aged Out No longer e [...] patient's age to complete this topic Insurance HUMAN Care Teams Idea Man Relationship Specialty Start Date End Date Sofi Young MD [address] [place] [address] PCP - General 12/10/20
--- OUTSIDE RECORDS SUMMARY | 2025-07-21 09:09 | XMS_ITS | Clinical Summary ---
[facility] Organization [facility] Address [address] [place] [address] Care Team Providers Care Tire Design Engineer Name Role Phone Sofi Young MD Primary [...] complete this topic Insurance PPO Care Teams Tire Design Engineer Relationship Specialty Start Date End Date Sofi Young MD [address] [place] [address] PCP - General Internal Medicine 07/24/18
--- NOTE | 2025-07-21 09:12 | CT_ITS ---
FINAL REPORT CLINICAL HISTORY: NECK PAIN AND HEADACHES COMPARISON: CT head, 06/23/2025, CTA head, none FINDINGS: CT HEAD: TECHNIQUE: Noncontrast exam This study was performed with techniques to keep radiation doses as low as reasonably achievable, (ALARA). Individualized dose reduction techniques using automated exposure control or adjustment of mA and/or kV according to the patient's size were employed. FINDINGS: Brain parenchyma is homogeneous without evidence of hemorrhage, mass effect or edema. No extra-axial abnormality is noted. Ventricles and cisterns appear normal. There is redemonstration of a mucous retention cyst in the right maxillary sinus. IMPRESSION: Unremarkable unenhanced CT of the brain. CTA HEAD TECHNIQUE: Thin section axial CT with contrast with 3D MIP reconstruction This study was performed with techniques to keep radiation doses as low as reasonably achievable, (ALARA). Individualized dose reduction techniques using automated exposure control or adjustment of mA and/or kV according to the patient's size were employed. FINDINGS: No aneurysm is seen. Major intracranial vessels are patent without significant stenosis. . IMPRESSION: Unremarkable This study was performed using automated techniques to achieve radiation exposure as low as reasonably achievable Reviewed, Interpreted and Dictated by Shruti Lewis MD Transcribed by Carolyn Gabriel Authenticated and [facility]
--- NOTE | 2025-07-21 09:30 | CT_ITS ---
FINAL REPORT CLINICAL HISTORY: NECK PAIN COMPARISON: None FINDINGS: CT NECK ANGIO, WITHOUT AND WITH CONTRAST TECHNIQUE: Thin section axial CT with contrast with multiplanar 3D MIP reconstruction. This study was performed with techniques to keep radiation doses as low as reasonably achievable, (ALARA). Individualized dose reduction techniques using automated exposure control or adjustment of mA and/or kV according to the patient's size were employed. NASCET criteria and technique was utilized during interpretation. FINDINGS: Aortic arch: Arch shows no significant narrowing. Great vessel origins are widely patent. Right carotid: No significant stenosis is seen of the cervical common or internal carotid artery. Left carotid: No significant stenosis is seen of the cervical common or internal carotid artery. Vertebrals: Left vertebral artery is dominant. No significant stenosis is present. IMPRESSION: No significant stenosis of the cervical carotid arteries This study was performed using automated techniques to achieve radiation exposure as low as reasonably Reviewed, Interpreted and Dictated by Shruti Lewis MD Transcribed by Carolyn Gabriel Authenticated and [facility]
[2025-07-21] MEDS: SODIUM CHLORIDE 0.9% 10ML SYR (RAD ONLY) 10 ML IV (09:51)
[2025-07-21] MEDS: 0.9 % SODIUM CHLORIDE 50 ML VIAL IV (09:51)
[2025-07-21] MEDS: IOPAMIDOL-370 (76%);100ML BOTTLE 80 ML IV (09:51)
== END 2025-07-21 23:59 | disposition home or self-care (01) ==
LOC: RAD 09:07
PROVIDERS: PCP Nurse Practitioner Family
DX: M54.2 Cervicalgia (principal); R51.9 Headache, unspecified
CPT/HCPCS: 70496; 70498; Q9967